=== PATIENT | male | born 1985 | race Caucasian/White ===

== ENCOUNTER → 2023-10-08 15:11 | Outpatient (CLI) | payer OTHER, SELFPAY ==
--- NOTE | 2023-10-08 | DI.US.S_ITS ---
PROCEDURE: US ABDOMEN LIMITED INDICATIONS: ABNORMAL LEVELS OF SERUM ENZYME TECHNIQUE: Real-time focused scanning was performed of the abdomen, with image documentation. COMPARISON: None. FINDINGS: Liver is enlarged measuring 17.2 cm with steatosis. Gallbladder demonstrates no stones. Wall thickness measures 2.2 mm. Common bile duct measures 3.8 mm. IMPRESSION: Hepatomegaly with steatosis. Dictated by: Gayle Diallo M.D. on 10/08/2023 at 19:25 Approved by: Gayle Diallo M.D. on 10/08/2023 at 19:26
== END ==
PROVIDERS: PCP Nurse Practitioner Family; Referring Provider Nurse Practitioner Family; Visit Provider Nurse Practitioner Family
DX: K76.0 Fatty (change of) liver, not elsewhere classified (principal); R74.8 Abnormal levels of other serum enzymes
CPT/HCPCS: 76705

== ENCOUNTER → 2024-04-29 08:01 | Outpatient (CLI) | payer OTHER, SELFPAY ==
[2024-04-29 10:38] LABS: Testosterone 399 ng/dL (132-813)
== END ==
PROVIDERS: PCP Nurse Practitioner Family; Referring Provider Urology; Visit Provider Urology
DX: R53.83 Other fatigue (principal)
CPT/HCPCS: 36415; 84403